=== PATIENT | male | born 1935 | race Caucasian/White ===

== ENCOUNTER 2018-04-11 11:45 | Inpatient (IN) | payer OTHER, MEDICARE ==
[~2018-04-11] VITALS: Ht 172.7 cm; Wt 68.0 kg
[~2018-04-11 11:45] MED LIST: ATOR20 PO; DABI150C; DILT180 PO; GUAI600T33 PO; LISI5 PO; Percocet 5-3251 EACH PO; Zofran Odt4 MG SL
[2018-04-11] MEDS ORDERED: ALBU90OI INH (12:10)
[2018-04-11] MEDS ORDERED: AMLO5 PO (12:10)
[2018-04-11] MEDS ORDERED: ELIQUIS5 MG PO (12:12)
[2018-04-11] MEDS ORDERED: Omeprazole20 M1 PO (12:13)
[2018-04-11] MEDS ORDERED: TAMS.4ER PO (12:14)
[2018-04-11] MEDS ORDERED: STRIVERDI RESPIM4 GM (12:14)
[2018-04-11 14:16] LABS: BASOPHILS ABSOLUTE AUTO 0.03 K/mm3 (0.00-0.23); BASOPHILS PERCENT AUTO 0 % (0-2); EOSINOPHILS ABSOLUTE AUTO 0.03 K/mm3 (0.00-0.68); EOSINOPHILS PERCENT AUTO 0 % (0-6); Hematocrit 40.7 % (37.0-53.0); Hemoglobin 12.8 g/dL (13.5-17.5); IMMATURE GRAN ABSOLUTE AUTO 0.02 K/mm3 (0.00-0.10); IMMATURE GRAN PERCENT AUTO 0 % (0-1); LYMPHOCYTES ABSOLUTE AUTO 0.89 K/mm3 (0.84-5.20); LYMPHOCYTES PERCENT AUTO 12 % (21-46); MONOCYTES ABSOLUTE AUTO 0.45 K/mm3 (0.16-1.47); MONOCYTES PERCENT AUTO 6 % (4-13); Mean Corpuscular HGB 27.6 pg (26.0-34.0); Mean Corpuscular HGB Conc 31.4 g/dL (31.5-36.5); Mean Corpuscular Volume 88 fL (80-100); Mean Platelet Volume 11.4 fL (9.1-12.4); NEUTROPHILS ABSOLUTE AUTO 5.87 K/mm3 (1.96-9.15); NEUTROPHILS PERCENT AUTO 81 % (41-73); Platelet Count 206 K/mm3 (150-400); RDW Coefficient Variation 13.8 % (11.7-14.2); RDW Standard Deviation 44.3 fL (35.1-46.3); Red Blood Cell Count 4.64 M/mm3 (4.30-5.90); White Blood Cell Count 7.29 K/mm3 (4.00-11.30)
[2018-04-11 14:33] LABS: Alanine Aminotransfer (ALT/SGP 21 U/L (12-78); Albumin, Blood 3.5 g/dL (3.4-5.0); Albumin/Globulin Ratio 1.2 (0.8-1.8); Alk Phos 67 U/L (50-136); Anion Gap 9 mmol/L (6-16); Aspartate Aminotrans (AST/SGOT 15 U/L (12-37); Bilirubin, Total 1.1 mg/dL (0.1-1.0); Blood Urea Nitrogen 22 mg/dL (8-24); Bun/Creatinine Ratio 26.9 (12.0-20.0); CO2, Blood 27 mmol/L (21-32); Calcium, Blood 8.6 mg/dL (8.5-10.1); Chloride, Blood 107 mmol/L (98-108); Creatinine, Blood 0.82 mg/dL (0.60-1.20); Glomerular Filtration Rate >60 (60-); Glucose, Blood 105 mg/dL (70-99); Potassium, Blood 3.8 mmol/L (3.5-5.5); Sodium, Blood 143 mmol/L (136-145); Total Protein, Blood 6.5 g/dL (6.4-8.2)
[2018-04-11] MEDS ORDERED: MULTI VITAMIN1 EACH PO (16:26)
[2018-04-11] MEDS ORDERED: ASCO500 PO (16:27)
[2018-04-11] MEDS ORDERED: OMEG1CAP30 PO (16:28)
[2018-04-12 04:18] LABS: BASOPHILS ABSOLUTE AUTO 0.03 K/mm3 (0.00-0.23); BASOPHILS PERCENT AUTO 0 % (0-2); EOSINOPHILS ABSOLUTE AUTO 0.06 K/mm3 (0.00-0.68); EOSINOPHILS PERCENT AUTO 1 % (0-6); Hematocrit 43.3 % (37.0-53.0); Hemoglobin 13.2 g/dL (13.5-17.5); IMMATURE GRAN ABSOLUTE AUTO 0.04 K/mm3 (0.00-0.10); IMMATURE GRAN PERCENT AUTO 0 % (0-1); LYMPHOCYTES ABSOLUTE AUTO 0.97 K/mm3 (0.84-5.20); LYMPHOCYTES PERCENT AUTO 9 % (21-46); MONOCYTES ABSOLUTE AUTO 0.64 K/mm3 (0.16-1.47); MONOCYTES PERCENT AUTO 6 % (4-13); Mean Corpuscular HGB 26.7 pg (26.0-34.0); Mean Corpuscular HGB Conc 30.5 g/dL (31.5-36.5); Mean Corpuscular Volume 88 fL (80-100); Mean Platelet Volume 11.6 fL (9.1-12.4); NEUTROPHILS PERCENT AUTO 84 % (41-73); Platelet Count 218 K/mm3 (150-400); RDW Coefficient Variation 13.8 % (11.7-14.2); RDW Standard Deviation 44.1 fL (35.1-46.3); Red Blood Cell Count 4.95 M/mm3 (4.30-5.90); White Blood Cell Count 11.14 K/mm3 (4.00-11.30)
[2018-04-12 04:43] LABS: Alanine Aminotransfer (ALT/SGP 16 U/L (12-78); Albumin, Blood 3.6 g/dL (3.4-5.0); Albumin/Globulin Ratio 1.2 (0.8-1.8); Alk Phos 63 U/L (50-136); Anion Gap 6 mmol/L (6-16); Aspartate Aminotrans (AST/SGOT 9 U/L (12-37); Bilirubin, Total 1.3 mg/dL (0.1-1.0); Blood Urea Nitrogen 21 mg/dL (8-24); Bun/Creatinine Ratio 26.1 (12.0-20.0); CO2, Blood 29 mmol/L (21-32); Calcium, Blood 8.7 mg/dL (8.5-10.1); Chloride, Blood 107 mmol/L (98-108); Globulin, Blood 2.9 g/dL (2.2-4.0); Glomerular Filtration Rate >60 (60-); Glucose, Blood 108 mg/dL (70-99); Magnesium, Blood 2.2 mg/dL (1.6-2.4); Phosphorus, Blood 2.4 mg/dL (2.5-4.9); Potassium, Blood 3.9 mmol/L (3.5-5.5); Sodium, Blood 142 mmol/L (136-145); Total Protein, Blood 6.5 g/dL (6.4-8.2)
[2018-04-13 04:23] LABS: BASOPHILS ABSOLUTE AUTO 0.04 K/mm3 (0.00-0.23); BASOPHILS PERCENT AUTO 1 % (0-2); EOSINOPHILS ABSOLUTE AUTO 0.02 K/mm3 (0.00-0.68); EOSINOPHILS PERCENT AUTO 0 % (0-6); Hematocrit 43.4 % (37.0-53.0); Hemoglobin 13.6 g/dL (13.5-17.5); IMMATURE GRAN ABSOLUTE AUTO 0.02 K/mm3 (0.00-0.10); IMMATURE GRAN PERCENT AUTO 0 % (0-1); LYMPHOCYTES ABSOLUTE AUTO 0.94 K/mm3 (0.84-5.20); LYMPHOCYTES PERCENT AUTO 11 % (21-46); MONOCYTES ABSOLUTE AUTO 0.59 K/mm3 (0.16-1.47); MONOCYTES PERCENT AUTO 7 % (4-13); Mean Corpuscular HGB 27.5 pg (26.0-34.0); Mean Corpuscular HGB Conc 31.3 g/dL (31.5-36.5); Mean Corpuscular Volume 88 fL (80-100); Mean Platelet Volume 11.7 fL (9.1-12.4); NEUTROPHILS ABSOLUTE AUTO 7.26 K/mm3 (1.96-9.15); NEUTROPHILS PERCENT AUTO 82 % (41-73); Platelet Count 236 K/mm3 (150-400); RDW Coefficient Variation 13.7 % (11.7-14.2); RDW Standard Deviation 43.9 fL (35.1-46.3); Red Blood Cell Count 4.95 M/mm3 (4.30-5.90); White Blood Cell Count 8.87 K/mm3 (4.00-11.30)
[2018-04-13 04:37] LABS: Anion Gap 9 mmol/L (6-16); Blood Urea Nitrogen 19 mg/dL (8-24); Bun/Creatinine Ratio 28.3 (12.0-20.0); CO2, Blood 27 mmol/L (21-32); Calcium, Blood 8.5 mg/dL (8.5-10.1); Chloride, Blood 107 mmol/L (98-108); Creatinine, Blood 0.67 mg/dL (0.60-1.20); Glomerular Filtration Rate >60 (60-); Glucose, Blood 114 mg/dL (70-99); Magnesium, Blood 2.2 mg/dL (1.6-2.4); Phosphorus, Blood 2.1 mg/dL (2.5-4.9); Potassium, Blood 3.6 mmol/L (3.5-5.5); Sodium, Blood 143 mmol/L (136-145)
[2018-04-14 05:20] LABS: BASOPHILS ABSOLUTE AUTO 0.02 K/mm3 (0.00-0.23); BASOPHILS PERCENT AUTO 0 % (0-2); EOSINOPHILS ABSOLUTE AUTO 0.03 K/mm3 (0.00-0.68); EOSINOPHILS PERCENT AUTO 0 % (0-6); Hematocrit 43.3 % (37.0-53.0); Hemoglobin 13.7 g/dL (13.5-17.5); IMMATURE GRAN ABSOLUTE AUTO 0.03 K/mm3 (0.00-0.10); IMMATURE GRAN PERCENT AUTO 0 % (0-1); LYMPHOCYTES ABSOLUTE AUTO 0.99 K/mm3 (0.84-5.20); LYMPHOCYTES PERCENT AUTO 12 % (21-46); MONOCYTES ABSOLUTE AUTO 0.84 K/mm3 (0.16-1.47); MONOCYTES PERCENT AUTO 10 % (4-13); Mean Corpuscular HGB 27.3 pg (26.0-34.0); Mean Corpuscular HGB Conc 31.6 g/dL (31.5-36.5); Mean Corpuscular Volume 86 fL (80-100); Mean Platelet Volume 11.4 fL (9.1-12.4); NEUTROPHILS ABSOLUTE AUTO 6.68 K/mm3 (1.96-9.15); NEUTROPHILS PERCENT AUTO 78 % (41-73); Platelet Count 238 K/mm3 (150-400); RDW Coefficient Variation 13.8 % (11.7-14.2); RDW Standard Deviation 42.8 fL (35.1-46.3); Red Blood Cell Count 5.02 M/mm3 (4.30-5.90); White Blood Cell Count 8.59 K/mm3 (4.00-11.30)
[2018-04-14 05:35] LABS: Anion Gap 9 mmol/L (6-16); Blood Urea Nitrogen 17 mg/dL (8-24); Bun/Creatinine Ratio 24.7 (12.0-20.0); CO2, Blood 27 mmol/L (21-32); Calcium, Blood 8.3 mg/dL (8.5-10.1); Chloride, Blood 106 mmol/L (98-108); Creatinine, Blood 0.69 mg/dL (0.60-1.20); Glomerular Filtration Rate >60 (60-); Glucose, Blood 105 mg/dL (70-99); Magnesium, Blood 2.3 mg/dL (1.6-2.4); Potassium, Blood 3.2 mmol/L (3.5-5.5); Sodium, Blood 142 mmol/L (136-145)
[2018-04-15 04:12] LABS: Anion Gap 10 mmol/L (6-16); Blood Urea Nitrogen 21 mg/dL (8-24); Bun/Creatinine Ratio 32.8 (12.0-20.0); CO2, Blood 25 mmol/L (21-32); Calcium, Blood 8.6 mg/dL (8.5-10.1); Chloride, Blood 106 mmol/L (98-108); Creatinine, Blood 0.64 mg/dL (0.60-1.20); Glomerular Filtration Rate >60 (60-); Glucose, Blood 103 mg/dL (70-99); Phosphorus, Blood 2.6 mg/dL (2.5-4.9); Potassium, Blood 3.1 mmol/L (3.5-5.5); Sodium, Blood 141 mmol/L (136-145)
[2018-04-16 04:40] LABS: Anion Gap 10 mmol/L (6-16); Blood Urea Nitrogen 24 mg/dL (8-24); Bun/Creatinine Ratio 38.2 (12.0-20.0); CO2, Blood 23 mmol/L (21-32); Chloride, Blood 110 mmol/L (98-108); Creatinine, Blood 0.63 mg/dL (0.60-1.20); Glomerular Filtration Rate >60 (60-); Glucose, Blood 92 mg/dL (70-99); Potassium, Blood 3.2 mmol/L (3.5-5.5); Sodium, Blood 143 mmol/L (136-145)
[2018-04-16 12:31] LABS: BASOPHILS ABSOLUTE AUTO 0.04 K/mm3 (0.00-0.23); BASOPHILS PERCENT AUTO 1 % (0-2); EOSINOPHILS ABSOLUTE AUTO 0.11 K/mm3 (0.00-0.68); EOSINOPHILS PERCENT AUTO 1 % (0-6); Hematocrit 39.7 % (37.0-53.0); Hemoglobin 12.6 g/dL (13.5-17.5); IMMATURE GRAN ABSOLUTE AUTO 0.03 K/mm3 (0.00-0.10); IMMATURE GRAN PERCENT AUTO 0 % (0-1); LYMPHOCYTES ABSOLUTE AUTO 1.11 K/mm3 (0.84-5.20); LYMPHOCYTES PERCENT AUTO 13 % (21-46); MONOCYTES ABSOLUTE AUTO 0.98 K/mm3 (0.16-1.47); MONOCYTES PERCENT AUTO 11 % (4-13); Mean Corpuscular HGB 27.6 pg (26.0-34.0); Mean Corpuscular HGB Conc 31.7 g/dL (31.5-36.5); Mean Corpuscular Volume 87 fL (80-100); Mean Platelet Volume 11.4 fL (9.1-12.4); NEUTROPHILS ABSOLUTE AUTO 6.36 K/mm3 (1.96-9.15); NEUTROPHILS PERCENT AUTO 74 % (41-73); Platelet Count 223 K/mm3 (150-400); RDW Standard Deviation 44.2 fL (35.1-46.3); Red Blood Cell Count 4.56 M/mm3 (4.30-5.90); White Blood Cell Count 8.63 K/mm3 (4.00-11.30)
[2018-04-17 04:22] LABS: Hematocrit 38.1 % (37.0-53.0); Mean Corpuscular HGB 26.9 pg (26.0-34.0); Mean Corpuscular HGB Conc 31.5 g/dL (31.5-36.5); Mean Corpuscular Volume 85 fL (80-100); Mean Platelet Volume 11.3 fL (9.1-12.4); Platelet Count 216 K/mm3 (150-400); RDW Standard Deviation 43.2 fL (35.1-46.3); Red Blood Cell Count 4.46 M/mm3 (4.30-5.90); White Blood Cell Count 6.42 K/mm3 (4.00-11.30)
[2018-04-17] MEDS ORDERED: ONDA4ODT PO (10:55)
== END 2018-04-17 11:34 | disposition home or self-care (01) | DRG 389 ==
LOC: ER 11:45 → SURS 11:46
PROVIDERS: Family Medicine
DX: K56.50 Intestinal adhesions [bands], unspecified as to partial versus complete obstruction (principal); K57.32 Diverticulitis of large intestine without perforation or abscess without bleeding; R00.1 Bradycardia, unspecified; I10 Essential (primary) hypertension; I25.10 Atherosclerotic heart disease of native coronary artery without angina pectoris; E87.6 Hypokalemia; J44.9 Chronic obstructive pulmonary disease, unspecified; I73.9 Peripheral vascular disease, unspecified; I71.4 Abdominal aortic aneurysm, without rupture; M10.9 Gout, unspecified; F10.21 Alcohol dependence, in remission; E78.5 Hyperlipidemia, unspecified; I25.2 Old myocardial infarction; Z79.01 Long term (current) use of anticoagulants; Z87.891 Personal history of nicotine dependence
CPT/HCPCS: 36415; 74018; 74019; 80048; 80053; 83735; 84100; 85025; 85027; 94640; 94760; 96361; 96365; 96366; 96372; 96375; 99285; C9113; G0378; J0360; J1650; J3411; J3475; J7030; J7042; J7060

== ENCOUNTER 2021-03-18 14:09 | Inpatient (IN) | payer OTHER, MEDICARE ==
[~2021-03-18] VITALS: Ht 172.7 cm; Wt 65.8 kg
[~2021-03-18 14:09] MED LIST changes: +ACET325 PO; +ALBU90OI INH; +AMLO5 PO; +ASCO500 PO; -ATOR20 PO; +ATOR40TA PO; +Aspirin EC81 MG PO; +ELIQUIS5 MG PO; +FERSU300 PO; +FURO40 PO; +Hair, Skin & N1 EACH PO; +IPRAT-ALBUT 0.5-3 ML INH; +LEVOFLOXACIN250 MG PO; +MULTI VITAMIN1 EACH PO; +OMEG1CAP30 PO; +ONDA4ODT MM; +ONDA4ODT PO; +Omeprazole20 M1 PO; +Prednisone10 MG PO; +STRIVERDI RESPIM4 G1 INH; +TAMS.4ER PO; +VISBIOME PO; +XARELTO20 MG PO
[2021-03-18] MEDS ORDERED: IRON PO (17:01)
[2021-03-18] MEDS ORDERED: XARELTO20 MG PO (17:03)
[2021-03-18] MEDS ORDERED: FISH OIL 1,2001 EAC7 PO (17:04)
[2021-03-18] MEDS ORDERED: ACIDOPHILUS1 EAC3 PO (17:04)
[2021-03-18] MEDS ORDERED: CENTRUM SILVER1 EAC2 PO (17:05)
[2021-03-18] MEDS ORDERED: Flomax0.4 MG PO (17:06)
--- NOTE | 2021-03-18 19:13 | NUR ---
SHIFT SUMMARY: PATIENT ADMIT FROM ED THIS SHIFT (@1855). PT A&O; CALM AND COOPERATIVE. BED IN LOWEST POSITION; CALL LIGHT WITHIN REACH. REPORT GIVEN TO ONCOMING RN.
[2021-03-18] MEDS ORDERED: PRESERVISION A1 EAC1 PO (20:38)
--- NOTE | 2021-03-19 04:31 | NUR ---
SHIFT SUMMARY ARRIVED FROM ED APPROX 1900. A/O X4, 1 ASSIST TO BATHROOM. WEANED OF O2, CURRENTLY ON RA WITH SATS GREATER THAN 92. CONTINUES TO HAVE PRODUCTIVE COUGH WITH YELLOW TO WILKINSON SPUTUM. IV SOLU-MEDROL GIVEN Q6. VSS, NO ACUTE CHANGES AT THIS TIME. BED IN LOWEST POSITION WITH CALL LIGHT IN REACH. WILL CONTINUE TO MONITOR AND REPORT TO ONCOMING RN.
[2021-03-19 06:00] LABS: BASOPHILS PERCENT AUTO 0 % (0-2); EOSINOPHILS PERCENT AUTO 0 % (0-6); Hematocrit 45.3 % (37.0-53.0); Hemoglobin 14.7 g/dL (13.5-17.5); IMMATURE GRAN ABSOLUTE AUTO 0.03 K/mm3 (0.00-0.10); IMMATURE GRAN PERCENT AUTO 1 % (0-1); LYMPHOCYTES ABSOLUTE AUTO 0.53 K/mm3 (0.84-5.20); LYMPHOCYTES PERCENT AUTO 9 % (21-46); MONOCYTES ABSOLUTE AUTO 0.05 K/mm3 (0.16-1.47); MONOCYTES PERCENT AUTO 1 % (4-13); Mean Corpuscular HGB 28.6 pg (26.0-34.0); Mean Corpuscular HGB Conc 32.5 g/dL (31.5-36.5); Mean Corpuscular Volume 88 fL (80-100); Mean Platelet Volume 10.7 fL (9.1-12.4); NEUTROPHILS ABSOLUTE AUTO 5.04 K/mm3 (1.96-9.15); NEUTROPHILS PERCENT AUTO 89 % (41-73); Platelet Count 223 K/mm3 (150-400); RDW Coefficient Variation 15.3 % (11.7-14.2); RDW Standard Deviation 49.7 fL (35.1-46.3); Red Blood Cell Count 5.14 M/mm3 (4.30-5.90); White Blood Cell Count 5.65 K/mm3 (4.00-11.30)
[2021-03-19 06:28] LABS: Anion Gap 7 mmol/L (6-16); Blood Urea Nitrogen 27 mg/dL (8-24); Bun/Creatinine Ratio 30.4 (12.0-20.0); CO2, Blood 25 mmol/L (21-32); Calcium, Blood 9.1 mg/dL (8.5-10.1); Chloride, Blood 105 mmol/L (98-108); Creatinine, Blood 0.89 mg/dL (0.60-1.20); Glomerular Filtration Rate >60 (60-); Glucose, Blood 135 mg/dL (70-99); Sodium, Blood 137 mmol/L (136-145)
--- NOTE | 2021-03-19 18:27 | NUR ---
SHIFT SUMMARY PT UP TO SIDE OF BED FOR LUNCH AND DINNER. IN CHAIR FOR BREAKFAST. REPORTS FEELING MUCH BETTER THAN WHEN HE FIRST ARRIVED TO HOSPITAL. STATES HE HASN'T SLEPT WELL BUT DID GET A NAP THIS AFTERNOON. DAUGHTER AT BEDSIDE THIS AFTERNOON. SOB WITH ACTIVITY BUT RECOVERS WELL. SATS REMAIN IN THE 90'S. DENIES FEELING SOB DESPITE INCREASED RESP AND APPEARING TO DYSPEIC. POSSIBLE DISCHARGE TOMORROW.
--- NOTE | 2021-03-20 04:10 | NUR ---
SHIFT SUMMARY PT REMAINED ON RA. O2 SATS IN THE LOW TO MID 90'S THROUGHOUT THE NIGHT. PT DOES HAVE SOME SOB WITH EXERTION BUT RECOVERS WELL WITH REST. LUNG SOUNDS WHEEZY. PT REPORTS THIS IS BASELINE FOR HIM AND THAT HE "FEELS BETTER THAN HE HAS IN 6 MONTHS". PT SLEPT THROUGH MUCH OF THE NIGHT. VITAL SIGNS STABLE. NO ACUTE CHANGES THIS SHIFT.
[2021-03-20] MEDS ORDERED: Prednisone10 MG PO (10:40)
--- NOTE | 2021-03-20 12:43 | NUR ---
Discharge Summary A/Ox3, forgetful. Discharging to home. Reviewed discharge paperwork with patient and son at the bedside d/t forgetfulness. Patient's wallet has been unlocked and given back to patient. IV removed, WNL. Meds faxed to pharmacy. Copy of d/c paperwork given to patient. Will be escorted by staff via w/c once finished dressing. No questions at this time.
== END 2021-03-20 13:01 | disposition home or self-care (01) | DRG 189 ==
LOC: ER 14:09 → MEDS 14:10 → ER 14:10 → MEDS 14:10
PROVIDERS: Nurse Practitioner Acute Care; ADMIT Internal Medicine
DX: J96.01 Acute respiratory failure with hypoxia (principal); J44.1 Chronic obstructive pulmonary disease with (acute) exacerbation; I48.20 Chronic atrial fibrillation, unspecified; N40.0 Benign prostatic hyperplasia without lower urinary tract symptoms; I25.10 Atherosclerotic heart disease of native coronary artery without angina pectoris; I11.0 Hypertensive heart disease with heart failure; I73.9 Peripheral vascular disease, unspecified; D50.9 Iron deficiency anemia, unspecified; Z79.899 Other long term (current) drug therapy; Z95.1 Presence of aortocoronary bypass graft; E78.5 Hyperlipidemia, unspecified; J44.9 Chronic obstructive pulmonary disease, unspecified; M10.9 Gout, unspecified; I50.9 Heart failure, unspecified; Z98.890 Other specified postprocedural states; Z87.891 Personal history of nicotine dependence; Z88.2 Allergy status to sulfonamides; Z88.8 Allergy status to other drugs, medicaments and biological substances
CPT/HCPCS: 36415; 71045; 71046; 80048; 83605; 84145; 84484; 85025; 87040; 93005; 93010; 94640; 94667; 94761; 94762; 96365; 96366; 96375; 96376; 99285-25; A9270; G0378; J0696; J2930

== ENCOUNTER 2021-06-24 16:45 | Emergency (ER) | payer OTHER, MEDICARE ==
[~2021-06-24] VITALS: Ht 172.7 cm; Wt 63.5 kg
[~2021-06-24 16:45] MED LIST changes: +ACIDOPHILUS1 EAC3 PO; +CENTRUM SILVER1 EAC2 PO; +FISH OIL 1,2001 EAC7 PO; +Flomax0.4 MG PO; +IRON PO; +PRESERVISION A1 EAC1 PO
[2021-06-24 17:57] LABS: BASOPHILS ABSOLUTE AUTO 0.07 K/mm3 (0.00-0.23); BASOPHILS PERCENT AUTO 1 % (0-2); EOSINOPHILS ABSOLUTE AUTO 0.36 K/mm3 (0.00-0.68); EOSINOPHILS PERCENT AUTO 6 % (0-6); Hematocrit 41.9 % (37.0-53.0); Hemoglobin 13.4 g/dL (13.5-17.5); IMMATURE GRAN ABSOLUTE AUTO 0.03 K/mm3 (0.00-0.10); IMMATURE GRAN PERCENT AUTO 1 % (0-1); LYMPHOCYTES ABSOLUTE AUTO 0.81 K/mm3 (0.84-5.20); LYMPHOCYTES PERCENT AUTO 13 % (21-46); MONOCYTES ABSOLUTE AUTO 0.79 K/mm3 (0.16-1.47); MONOCYTES PERCENT AUTO 13 % (4-13); Mean Corpuscular HGB 28.1 pg (26.0-34.0); Mean Corpuscular Volume 88 fL (80-100); Mean Platelet Volume 10.9 fL (9.1-12.4); NEUTROPHILS ABSOLUTE AUTO 4.04 K/mm3 (1.96-9.15); NEUTROPHILS PERCENT AUTO 66 % (41-73); Platelet Count 294 K/mm3 (150-400); RDW Coefficient Variation 14.1 % (11.7-14.2); RDW Standard Deviation 45.5 fL (35.1-46.3); Red Blood Cell Count 4.77 M/mm3 (4.30-5.90)
[2021-06-24 18:13] LABS: Alanine Aminotransfer (ALT/SGP 24 U/L (12-78); Albumin/Globulin Ratio 0.9 (0.8-1.8); Alk Phos 63 U/L (50-136); Anion Gap 6 mmol/L (6-16); Aspartate Aminotrans (AST/SGOT 21 U/L (12-37); Bilirubin, Total 1.1 mg/dL (0.1-1.0); Blood Urea Nitrogen 24 mg/dL (8-24); CO2, Blood 27 mmol/L (21-32); Calcium, Blood 9.3 mg/dL (8.5-10.1); Chloride, Blood 105 mmol/L (98-108); Creatinine, Blood 0.92 mg/dL (0.60-1.20); Globulin, Blood 3.4 g/dL (2.2-4.0); Glomerular Filtration Rate >60 (60-); Glucose, Blood 96 mg/dL (70-99); Magnesium, Blood 2.2 mg/dL (1.6-2.4); Potassium, Blood 4.1 mmol/L (3.5-5.5); Sodium, Blood 138 mmol/L (136-145); Total Protein, Blood 6.4 g/dL (6.4-8.2); Troponin I <0.015 ng/mL (0.000-0.040)
[2021-06-24] MEDS ORDERED: Prednisone20 MG PO (19:15)
== END 2021-06-24 19:50 | disposition home or self-care (01) ==
LOC: ER 16:45
PROVIDERS: Emergency Medicine
DX: J44.1 Chronic obstructive pulmonary disease with (acute) exacerbation (principal); I11.0 Hypertensive heart disease with heart failure; I50.9 Heart failure, unspecified; I48.91 Unspecified atrial fibrillation; D50.9 Iron deficiency anemia, unspecified; Z88.8 Allergy status to other drugs, medicaments and biological substances; Z88.2 Allergy status to sulfonamides; Z79.899 Other long term (current) drug therapy; Z99.81 Dependence on supplemental oxygen; Z87.891 Personal history of nicotine dependence
CPT/HCPCS: 71045; 80053; 83735; 83880; 84145; 84484; 85025; 93005; 93010; 94640; 96374; 99285-25; J1940; J7512

== ENCOUNTER 2021-08-07 13:31 | Emergency (ER) | payer OTHER ==
[~2021-08-07] VITALS: Ht 172.7 cm; Wt 63.5 kg
[~2021-08-07 13:31] MED LIST changes: +Prednisone20 MG PO
[2021-08-07] MEDS ORDERED: GUAI600T33 PO (13:53)
[2021-08-07] MEDS ORDERED: ROFL500T PO (13:54)
[2021-08-07 14:44] LABS: BASOPHILS ABSOLUTE AUTO 0.05 K/mm3 (0.00-0.23); BASOPHILS PERCENT AUTO 1 % (0-2); EOSINOPHILS PERCENT AUTO 2 % (0-6); Hematocrit 40.8 % (37.0-53.0); Hemoglobin 12.5 g/dL (13.5-17.5); IMMATURE GRAN ABSOLUTE AUTO 0.01 K/mm3 (0.00-0.10); IMMATURE GRAN PERCENT AUTO 0 % (0-1); LYMPHOCYTES ABSOLUTE AUTO 1.02 K/mm3 (0.84-5.20); LYMPHOCYTES PERCENT AUTO 23 % (21-46); MONOCYTES PERCENT AUTO 9 % (4-13); Mean Corpuscular HGB 27.2 pg (26.0-34.0); Mean Corpuscular HGB Conc 30.6 g/dL (31.5-36.5); Mean Corpuscular Volume 89 fL (80-100); Mean Platelet Volume 11.1 fL (9.1-12.4); NEUTROPHILS ABSOLUTE AUTO 2.79 K/mm3 (1.96-9.15); NEUTROPHILS PERCENT AUTO 64 % (41-73); Platelet Count 176 K/mm3 (150-400); RDW Standard Deviation 53.6 fL (35.1-46.3); White Blood Cell Count 4.37 K/mm3 (4.00-11.30)
[2021-08-07 14:57] LABS: Alanine Aminotransfer (ALT/SGP 24 U/L (12-78); Albumin, Blood 3.2 g/dL (3.4-5.0); Alk Phos 62 U/L (50-136); Anion Gap 7 mmol/L (6-16); Aspartate Aminotrans (AST/SGOT 14 U/L (12-37); Bilirubin, Total 0.8 mg/dL (0.1-1.0); Blood Urea Nitrogen 20 mg/dL (8-24); Bun/Creatinine Ratio 19.4 (12.0-20.0); CO2, Blood 26 mmol/L (21-32); Calcium, Blood 9.4 mg/dL (8.5-10.1); Chloride, Blood 108 mmol/L (98-108); Creatinine, Blood 1.03 mg/dL (0.60-1.20); Globulin, Blood 3.3 g/dL (2.2-4.0); Glomerular Filtration Rate >60 (60-); Glucose, Blood 96 mg/dL (70-99); Potassium, Blood 3.7 mmol/L (3.5-5.5); Sodium, Blood 141 mmol/L (136-145); Total Protein, Blood 6.5 g/dL (6.4-8.2); Troponin I <0.015 ng/mL (0.000-0.040)
[2021-08-07 15:59] LABS: Influenza A, PCR NEGATIVE (NEGATIVE); Influenza B, PCR NEGATIVE (NEGATIVE); Resp Syncytial Virus, PCR NEGATIVE (NEGATIVE); SARS-Cov-2 (COVID-19) PCR, MMC NEGATIVE (NEGATIVE)
[2021-08-07] MEDS ORDERED: LEVFLO500 PO (16:58)
== END 2021-08-07 17:18 | disposition home or self-care (01) ==
LOC: ER 13:31
PROVIDERS: Emergency Medicine
DX: J18.9 Pneumonia, unspecified organism (principal); J44.9 Chronic obstructive pulmonary disease, unspecified; I11.0 Hypertensive heart disease with heart failure; I50.9 Heart failure, unspecified; I48.91 Unspecified atrial fibrillation; Z20.822 Contact with and (suspected) exposure to COVID-19; Z88.8 Allergy status to other drugs, medicaments and biological substances; Z79.899 Other long term (current) drug therapy
CPT/HCPCS: 0241U; 71045; 80053; 83880; 84484; 85025; 93005; 93010; 93970; 99285-25; A9270

== ENCOUNTER 2021-08-24 14:30 | Inpatient (IN) | payer OTHER ==
[~2021-08-24] VITALS: Ht 177.8 cm; Wt 56.6 kg
[~2021-08-24 14:30] MED LIST changes: +LEVFLO500 PO; +ROFL500T PO
[2021-08-24 15:35] LABS: BASOPHILS ABSOLUTE AUTO 0.07 K/mm3 (0.00-0.23); BASOPHILS PERCENT AUTO 1 % (0-2); EOSINOPHILS ABSOLUTE AUTO 0.15 K/mm3 (0.00-0.68); EOSINOPHILS PERCENT AUTO 3 % (0-6); Hematocrit 43.4 % (37.0-53.0); Hemoglobin 13.1 g/dL (13.5-17.5); IMMATURE GRAN ABSOLUTE AUTO 0.02 K/mm3 (0.00-0.10); IMMATURE GRAN PERCENT AUTO 0 % (0-1); LYMPHOCYTES ABSOLUTE AUTO 1.03 K/mm3 (0.84-5.20); LYMPHOCYTES PERCENT AUTO 18 % (21-46); MONOCYTES ABSOLUTE AUTO 0.67 K/mm3 (0.16-1.47); MONOCYTES PERCENT AUTO 12 % (4-13); Mean Corpuscular HGB 27.1 pg (26.0-34.0); Mean Corpuscular HGB Conc 30.2 g/dL (31.5-36.5); Mean Corpuscular Volume 90 fL (80-100); Mean Platelet Volume 11.1 fL (9.1-12.4); NEUTROPHILS ABSOLUTE AUTO 3.77 K/mm3 (1.96-9.15); NEUTROPHILS PERCENT AUTO 66 % (41-73); Platelet Count 226 K/mm3 (150-400); RDW Coefficient Variation 17.2 % (11.7-14.2); RDW Standard Deviation 56.4 fL (35.1-46.3); Red Blood Cell Count 4.83 M/mm3 (4.30-5.90); White Blood Cell Count 5.71 K/mm3 (4.00-11.30)
[2021-08-24 15:53] LABS: Alanine Aminotransfer (ALT/SGP 22 U/L (12-78); Albumin, Blood 3.5 g/dL (3.4-5.0); Albumin/Globulin Ratio 1.1 (0.8-1.8); Alk Phos 67 U/L (50-136); Anion Gap 4 mmol/L (6-16); Aspartate Aminotrans (AST/SGOT 18 U/L (12-37); Bilirubin, Total 0.7 mg/dL (0.1-1.0); Blood Urea Nitrogen 23 mg/dL (8-24); Bun/Creatinine Ratio 23.6 (12.0-20.0); CO2, Blood 29 mmol/L (21-32); Calcium, Blood 9.9 mg/dL (8.5-10.1); Chloride, Blood 108 mmol/L (98-108); Creatinine, Blood 0.97 mg/dL (0.60-1.20); Globulin, Blood 3.3 g/dL (2.2-4.0); Glomerular Filtration Rate >60 (60-); Glucose, Blood 108 mg/dL (70-99); Potassium, Blood 4.2 mmol/L (3.5-5.5); Sodium, Blood 141 mmol/L (136-145); Total Protein, Blood 6.8 g/dL (6.4-8.2); Troponin I <0.015 ng/mL (0.000-0.040)
[2021-08-24 16:06] LABS: SARS-Cov-2 (COVID-19) PCR, MMC NEGATIVE (NEGATIVE)
[2021-08-24] MEDS ORDERED: ATROPINE S0.4 MG/1 M PO (16:30)
[2021-08-24] MEDS ORDERED: METO25ER PO (18:28)
[2021-08-24] MEDS ORDERED: FURO20 PO (18:29)
[2021-08-24 23:44] LABS: Adenovirus Not Detected (NOT DETECT); Bordetella pertussis Not Detected (NOT DETECT); Chlamydophila pneumoniae Not Detected (NOT DETECT); Coronavirus 229E Not Detected (NOT DETECT); Coronavirus HKU1 Not Detected (NOT DETECT); Coronavirus NL63 Not Detected (NOT DETECT); Coronavirus OC43 Not Detected (NOT DETECT); Human Metapneumovirus Not Detected (NOT DETECT); Human Rhinovirus/Enterovirus Detected (NOT DETECT); Influenza A/2009-H1 Not Detected (NOT DETECT); Influenza A/H1 Not Detected (NOT DETECT); Influenza A/H3 Not Detected (NOT DETECT); Influenza B Not Detected (NOT DETECT); Mycoplasma pneumoniae Not Detected (NOT DETECT); Parainfluenza Virus 1 Not Detected (NOT DETECT); Parainfluenza Virus 2 Not Detected (NOT DETECT); Parainfluenza Virus 3 Not Detected (NOT DETECT); Parainfluenza Virus 4 Not Detected (NOT DETECT); Respiratory Syncytial Virus Not Detected (NOT DETECT); SARS-Cov-2 (COVID-19), BioFire Not Detected (NOT DETECT)
[2021-08-25 04:48] LABS: Anion Gap 8 mmol/L (6-16); Blood Urea Nitrogen 21 mg/dL (8-24); Bun/Creatinine Ratio 23.3 (12.0-20.0); CO2, Blood 28 mmol/L (21-32); Calcium, Blood 9.8 mg/dL (8.5-10.1); Chloride, Blood 104 mmol/L (98-108); Glomerular Filtration Rate >60 (60-); Glucose, Blood 153 mg/dL (70-99); Potassium, Blood 3.7 mmol/L (3.5-5.5); Sodium, Blood 140 mmol/L (136-145)
--- NOTE | 2021-08-25 13:23 | NUR ---
PATIENT ALERT AND ORIENTED. HARD OF HEARING. ABLE TO MOVE ALL EXTREMITIES. USING WALKER WITH 1 PERSON ASSIST. DENIES NUMBNESS/TINGLING. ON 4 L O2 SATING LOW-MID 90'S. OCCASIONAL MOIST/WET COUGH. TELE SHOWING SINUS VERONIKA WITH PVC'S. HR 50-70'S. DENIES CHEST PAIN/PRESSURE. COMPLAINS OF CHRONIC BACK PAIN/NECK. DENIES NEED FOR MEDICATION. TAKING MEDS WHOLE ONE AT A TIME WITH APPLESAUCE. VOIDING WELL. SKIN OVERALL FRAGILE. SPOKE WITH FAMILY MEMBER ON PHONE EMILY FOR UPDATE. CALL LIGHT IN REACH. BED IN LOW LOCKED POSITION. WILL CONTINUE TO MONITOR.
--- NOTE | 2021-08-25 18:17 | NUR ---
SHIFT SUMMARY: NO ACUTE CHANGES. TELE REMAINS UNCHAGED. HR 60-70'S. SLEEPING ON AND OFF THIS AFTERNOON. DAUGHTER IN TO VISIT. REMAINS ON 4L NASAL CANNULA SATING LOW-MID 90'S. OCCASIONAL COUGH THAT IS WET/MOIST. DENIES ANY PAIN OR NEEDS AT THIS TIME. NOT INTERESTED IN EATING DINNER. DRINKING ENSURE. VITAL SIGNS STABLE. WILL CONTINUE TO MONITOR AND REPORT OFF.
--- NOTE | 2021-08-26 02:37 | NUR ---
PT CONTINUE TO REQUIRE 4L O2 NC. O2 SAT 91-97%, WILL CONTINUE TO ATTEMPT TO WEAN. WET COUGH OCCASIONAL. ADNMINISTERING SOLUMEDROL. PT RECIEVING KIMMY TREATMENTS. CONTINUE TO MONITOR.
[2021-08-26 03:52] LABS: Hematocrit 41.1 % (37.0-53.0); Mean Corpuscular HGB 27.3 pg (26.0-34.0); Mean Corpuscular HGB Conc 31.6 g/dL (31.5-36.5); Mean Corpuscular Volume 86 fL (80-100); Mean Platelet Volume 11.1 fL (9.1-12.4); Platelet Count 223 K/mm3 (150-400); RDW Coefficient Variation 17.2 % (11.7-14.2); RDW Standard Deviation 54.4 fL (35.1-46.3); Red Blood Cell Count 4.77 M/mm3 (4.30-5.90); White Blood Cell Count 7.04 K/mm3 (4.00-11.30)
[2021-08-26 04:13] LABS: Alanine Aminotransfer (ALT/SGP 20 U/L (12-78); Albumin, Blood 3.2 g/dL (3.4-5.0); Alk Phos 56 U/L (50-136); Anion Gap 8 mmol/L (6-16); Aspartate Aminotrans (AST/SGOT 9 U/L (12-37); Bilirubin, Total 0.6 mg/dL (0.1-1.0); Blood Urea Nitrogen 23 mg/dL (8-24); Bun/Creatinine Ratio 29.3 (12.0-20.0); CO2, Blood 28 mmol/L (21-32); Chloride, Blood 104 mmol/L (98-108); Creatinine, Blood 0.79 mg/dL (0.60-1.20); Globulin, Blood 3.3 g/dL (2.2-4.0); Glomerular Filtration Rate >60 (60-); Glucose, Blood 156 mg/dL (70-99); Potassium, Blood 3.3 mmol/L (3.5-5.5); Sodium, Blood 140 mmol/L (136-145); Total Protein, Blood 6.5 g/dL (6.4-8.2)
[2021-08-26] MEDS ORDERED: LEVO750 PO (12:14)
[2021-08-26] MEDS ORDERED: PRED20 PO (12:15)
--- NOTE | 2021-08-26 14:42 | NUR ---
PT DISCHARGED TO HOME TODAY WITH DISCHARGE ORDERS. PT TO CONTINUE STEROIDS AND ANTIBIOTIC AT HOME, [facility] DA[facility]TER [facility] AWARE PT HAS UPCOMING FF-UP THIS . DISCHARGE INSTRUCTIONS DISCLOSED WITH THE PT AND THE DAUGHTER. BOTH VERBALIZED UNDERSTANDING. ALL BELONGINGS SENT WITH THE PATIENT, ACCOMPANIED VIA WHEELCHIAR, DAUGHTER PROVIDED TRANSPORTATION.
== END 2021-08-26 14:25 | disposition hospice, home (50) | DRG 189 ==
LOC: ER 14:30 → ERHOLD 16:52 → PCU 16:52
PROVIDERS: Internal Medicine; Physician Assistant; ADMIT Internal Medicine
DX: J96.21 Acute and chronic respiratory failure with hypoxia (principal); I48.20 Chronic atrial fibrillation, unspecified; I50.22 Chronic systolic (congestive) heart failure; I49.5 Sick sinus syndrome; Z20.822 Contact with and (suspected) exposure to COVID-19; E78.5 Hyperlipidemia, unspecified; J44.9 Chronic obstructive pulmonary disease, unspecified; I48.0 Paroxysmal atrial fibrillation; M10.9 Gout, unspecified; I35.0 Nonrheumatic aortic (valve) stenosis; D50.9 Iron deficiency anemia, unspecified; I11.0 Hypertensive heart disease with heart failure; R25.8 Other abnormal involuntary movements; N40.0 Benign prostatic hyperplasia without lower urinary tract symptoms; G31.84 Mild cognitive impairment of uncertain or unknown etiology; I25.10 Atherosclerotic heart disease of native coronary artery without angina pectoris; Z87.19 Personal history of other diseases of the digestive system; Z99.81 Dependence on supplemental oxygen; Z51.5 Encounter for palliative care; Z95.1 Presence of aortocoronary bypass graft; Z86.73 Personal history of transient ischemic attack (TIA), and cerebral infarction without residual deficits; Z85.46 Personal history of malignant neoplasm of prostate; Z87.891 Personal history of nicotine dependence; Z88.2 Allergy status to sulfonamides; Z88.8 Allergy status to other drugs, medicaments and biological substances; Z79.01 Long term (current) use of anticoagulants; Z79.52 Long term (current) use of systemic steroids; Z79.899 Other long term (current) drug therapy
CPT/HCPCS: 0202U; 36415; 71045; 80048; 80053; 83880; 84484; 85025; 85027; 93005; 93010; 94640; 94760; 96374; 96375; 99285-25; A9270; J1940; J2930; U0004

== ENCOUNTER 2021-08-27 05:22 | Inpatient (IN) | payer OTHER ==
[~2021-08-27] VITALS: Ht 172.7 cm; Wt 54.4 kg
[~2021-08-27 05:22] MED LIST changes: +ATROPINE S0.4 MG/1 M PO; +FURO20 PO; +LEVO750 PO; +METO25ER PO; +PRED20 PO
[2021-08-27 05:51] LABS: BASOPHILS PERCENT AUTO 0 % (0-2); EOSINOPHILS PERCENT AUTO 0 % (0-6); Hematocrit 43.4 % (37.0-53.0); Hemoglobin 13.4 g/dL (13.5-17.5); IMMATURE GRAN ABSOLUTE AUTO 0.05 K/mm3 (0.00-0.10); IMMATURE GRAN PERCENT AUTO 1 % (0-1); LYMPHOCYTES ABSOLUTE AUTO 0.38 K/mm3 (0.84-5.20); LYMPHOCYTES PERCENT AUTO 4 % (21-46); MONOCYTES ABSOLUTE AUTO 0.65 K/mm3 (0.16-1.47); MONOCYTES PERCENT AUTO 7 % (4-13); Mean Corpuscular HGB 27.3 pg (26.0-34.0); Mean Corpuscular HGB Conc 30.9 g/dL (31.5-36.5); Mean Corpuscular Volume 88 fL (80-100); NEUTROPHILS ABSOLUTE AUTO 7.71 K/mm3 (1.96-9.15); NEUTROPHILS PERCENT AUTO 88 % (41-73); Platelet Count 224 K/mm3 (150-400); RDW Coefficient Variation 17.5 % (11.7-14.2); RDW Standard Deviation 56.4 fL (35.1-46.3); Red Blood Cell Count 4.91 M/mm3 (4.30-5.90); White Blood Cell Count 8.79 K/mm3 (4.00-11.30)
[2021-08-27 06:10] LABS: Alanine Aminotransfer (ALT/SGP 21 U/L (12-78); Albumin, Blood 3.3 g/dL (3.4-5.0); Alk Phos 55 U/L (50-136); Anion Gap 6 mmol/L (6-16); Aspartate Aminotrans (AST/SGOT 18 U/L (12-37); Bilirubin, Total 0.5 mg/dL (0.1-1.0); Blood Urea Nitrogen 30 mg/dL (8-24); Bun/Creatinine Ratio 32.6 (12.0-20.0); CO2, Blood 31 mmol/L (21-32); Calcium, Blood 9.9 mg/dL (8.5-10.1); Chloride, Blood 101 mmol/L (98-108); Creatinine, Blood 0.92 mg/dL (0.60-1.20); Globulin, Blood 3.3 g/dL (2.2-4.0); Glomerular Filtration Rate >60 (60-); Glucose, Blood 125 mg/dL (70-99); Magnesium, Blood 2.3 mg/dL (1.6-2.4); Potassium, Blood 4.2 mmol/L (3.5-5.5); Sodium, Blood 138 mmol/L (136-145); Total Protein, Blood 6.6 g/dL (6.4-8.2)
[2021-08-27 12:39] LABS: Influenza A, PCR NEGATIVE (NEGATIVE); Influenza B, PCR NEGATIVE (NEGATIVE); Resp Syncytial Virus, PCR NEGATIVE (NEGATIVE); SARS-Cov-2 (COVID-19) PCR, MMC NEGATIVE (NEGATIVE)
[2021-08-27 14:25] LABS: Troponin I 0.027 ng/mL (0.000-0.040)
[2021-08-27 14:28] LABS: Thyroid Stimulating Hormone 2.51 uIU/mL (0.360-4.800)
--- NOTE | 2021-08-27 15:40 | NUR ---
Pt arrived from ED, on 4 l/min of oxygen delivery, alert, oriented to person, place, and date. He is rambling in conversation, often about unrelated ideas/events, and it is difficult to get a direct answer from him. He is following directions and responding to questions. In no apparent distress, and his vital signs are stable. Oxygen decreased to 2 l/min and spo2 is maintaining at 93-97%. Fine crackles are heard in the bases posteriorly. Sinus bradycardia, averaging 50 bpm, with PVCs and I was just alerted by the program director cable television that he had a [address] Morin, linoleum installer, here to see the patient.
--- NOTE | 2021-08-27 15:45 | NUR ---
Upon arrival, noted that a chux pad underneath the patient was stained with a small amount of blood, and some dried blood also noted on the pt's urethra. HELEN Pappas said that she thought it was from the unsuccessful attempt to straight catheterize the patient. Noted outstanding uncollected urine specimen on the orders.
--- NOTE | 2021-08-27 17:36 | NUR ---
Pt attempting to void with urinal while lying in bed.
[2021-08-27 18:19] LABS: International Normalized Ratio 1.11; Prothrombin Time Results 11.6 Sec (9.7-11.5)
[2021-08-27 18:24] LABS: Source, Urine Catheter
[2021-08-27 18:28] LABS: Appearance, Urine Cloudy (Clear); Bilirubin, Urine Neg (Neg); Blood, Urine 5+ (Neg); Color, Urine Amber (P-Yellow); Glucose Qualitative, Urine Neg (Neg); Ketones, Urine Neg (Neg); Leukocyte Esterase, Urine 2+ (Neg); Nitrite, Urine Neg (Neg); Protein, Urine 3+ (Neg); Urobilinogen, Urine NORM (Normal)
--- NOTE | 2021-08-27 18:28 | NUR ---
Pt bladder scanned and 355 cc noted; Pt assisted to stand to void. He voided only about 40 cc, stated that it hurts to void, and sonam blood noted dripping from the end of his urethra after the void. Call to Dr. Abdul and new orders received. Discussed the heparin gtt orders, which she said she would discuss with Dr. Montemayor since he talked with Dr. Morin who had ordered it in the first place. Heparin gtt not yet started.
[2021-08-27 18:39] LABS: Hyaline Casts 0-2 /lpf (0-2); Red Blood Cells, Urine TNTC /hpf (0-2)
[2021-08-27 18:40] LABS: Bacteria Mod /hpf; Squamous Epithelial Cells Not Seen /hpf (Few); White Blood Cells, Urine 0-2 /hpf (0-5)
--- NOTE | 2021-08-27 20:21 | NUR ---
COMFORT CARE UPDATE: Spoke with family/decision makers regarding pts status. Pt demonstrating increased agitation, dyspnea, and discomfort. Decision was made to transition to comfort care as per family request who have demonstrated significant support for pt throughout medical treatment. Ultimate goal remains for pt to be able to discharge home with hospice/end of life support though verbalized understanding that priority is for comfort and symptom management to begin while hospitalized. Chart updated with family contact numbers, questions answered, plan discussed with care team.
--- NOTE | 2021-08-28 05:43 | NUR ---
SHIFT SUMMARY PT A&OX2. COOPERATIVE. SOMETIMES DOES NOT KNOW WHERE HE IS. PT STATES, "WHAT HAPPENED TO MY ROOM?" ONCE REMINDED HE IS IN THE HOSPITAL, PT STATES "OH THAT EXPLAINS WHY EVERYTHING IS DIFFERENT.". ATTEMPTS TO GET OUT OF BED "TO GO HOME". SP02>90% ON 4L NC. PT CHANGED TO COMFORT CARE AT BEGINNING OF SHIFT, NO TELEMETRY. PT C/O OF SEVERE ABD PAIN AT BEGINNING OF SHIFT. APPEARED TO HAVE TROUBLE URINATING. BLADDER SCAN SHOWED 375 MLS IN BLADDER. PT WAS ABLE TO VOID 20 MLS. AFTER VOIDED, FEW DROPS OF RED BLOOD FROM URETHRA. 1 MG DIULADID GIVEN PER EMAR FOR PAIN. PT SLEPT MOST OF SHIFT. AWAKENED THIS AM DENYING ABD PAIN AND VOIDING 275 MLS, NO BLOOD NOTED THIS TIME. PT NOW UP IN CHAIR W/ CHAIR ALARM. ATTEMPTS TO EXIT CHAIR FREQUENTLY. CALL LIGHT IN REACH.
--- NOTE | 2021-08-28 11:22 | NUR ---
Comfort care visit made this am after review of EMR and new orders & Case conference with pt's RN. Later made second visit when phuong, Monica, was visiting. She had met with CM and #1 d/c plan of choice is for pt to return home with family and hospice care. Medical POA is pt's son, Trever. Alberto will notify him and other family members to choose agency of choice. During my first visit, pt was sleeping with even and sl labored respirations of 20/min. No nonverbal indicators of pain or restlessness noted at that time. RN reported that pt did have some episodes of agitation, anxiety earlier in the am and prev night. Reviewed comfort care medications/plan of care with her and Dr. Scott ALBRECHT obtained to adjust comfort care orders specific to pt needs. New comfort care orders entered per Comfort Care order set. On second visit, alberto and Air Sampling And Monitoring Rupesh at bedside. Pt is conversant, confused, mostly calm except when discussing going home. He REALLY wants to return home BARBARA. Information on hospice agency availability obtained thru CM for Alberto. She will relay that to her MPOA and let us know agency of choice BARBARA. Monica is a former employee of [employer] and that would be her preference but states she is unable to make that decision. She also needs to make sure that her dad is available to sign hospice paperwork at the home tomorrow. Both local agencies that serve area of pt's residence are available for admissions tomorrow (as of this moment). Monica believes pt has O2 at home but he will need a hospital bed and other DME arranged prior to d/c. Monica has not been one of pt's in -home caregivers. A second alberto, Candy, has also called RN for an update. Monica will let her know we are waiting on family agency choice to start implementing d/c plan of choice. Pt denies pain at this time. Anxious to go home. [facility] will remain available as support to pt/family and staff.
--- NOTE | 2021-08-28 12:55 | NUR ---
Spiritual care visit conducted. Patient is lying in bed and alert. Patient talks at length about his family and his cars and struggles to discuss his health. He is very clear about wanting to get back to his house. He expresses his great love for his family and love of work. He has many stories to tell. We also talks about his recent margaret conversion. After a life time of being angry with God, he made peace with God last night in a prayer with a industrial insulator over the phone. I normalize his frustrations and provide therapeutic listening, a calming presence and prayer. Patient responds well and shows signs of being comforted. I will continue to remain available to patient and family.
--- NOTE | 2021-08-28 13:19 | NUR ---
UPDATE: Nurse has received multiple phone calls from pt's granddaughter Candy, starting at 0645 this am. At times of phone calls primary RN was providing care to patients and unable to take call. Kira (other granddaughter) and Trever (Son and POA) were updated by care-management as they are listed as points of contact. Monica (other granddaughter) at patients bedside and also updated since she is at bedside. Candy called again wanting an update, was very frustrated with not having recieved a call back. Informed her multiple family members had been updated and that her father, Trever, who is the POA is the contact and that she needs to defer to him for an update. Candy stated that she is actually the point of contact and has been. Checked notes and Candy is not listed as point of contact in recent care management notes nor DrJeff note. Her name is listed under Kira as next of kin and Trever is listed as Person to notify. Again, firmly defered her to speak to her father as he is the POA and has been updated, as well as multiple other family members. Informed her that if Trever would like this to change, and have Candy as point of contact, he would need to contact us and make this change.
--- NOTE | 2021-08-28 14:53 | NUR ---
Summary of ongoing conversations with nursing, family, Dr Abdul and Jerry. I was called back to the room a number of times to meet with phuong at bedside, Monica and then contacted by , stating that son is requesting a second opinion before deciding on hospice. I called Trever from his daughter's phone and remained in Monica's presence for the phone conversation because she was also confused by the change in plans per her dad, who is the medical POA and durable POA according to Monica. Trever states that his dad was suppose to have a routine visit with his kitchen operator in [place] today. Since pt is in the hospital, Trever planned to have one of his daughters (he did not give a name) call the [place] kitchen operator for their input before deciding on hospice. I reviewed quality of life issues and after care required for PPM placement that his dad may not be able to comply with due to poor memory. During my second to fourth visits to the room, pt can converse if it is in regards to cars but cannot follow a train of thought about other topics. I let Trever know that pt is medically ready for discharge per Glenna in light of request for no pacemaker placement requested by family. He was informed that his dad's s/s are well managed at this time and that his dad is clear that he wants to go home BARBARA. Trever states they "should have an answer very soon". I instructed him to inform our Shovel Log Loader Operator of the family decision and desired goals of care as soon as possible and reminded him that family had requested comfort care yesterday and that pt is currently on comfort care. Trever verbalized understanding. Monica was present for this entire conversation and was unaware of her dad's desire to include [place] kitchen operator in the decision making. She does not know when pt last saw his OP kitchen operator in [place]. All of above was reported to Dr Abdul, MINE, bedside RN and lost charge card clerk in PCU.
--- NOTE | 2021-08-28 18:18 | NUR ---
PT REMAINS ON COMFORT CARE- NO S/S OF DISTRESS NOTED AT THIS TIME. HOSPICE D/C DELAYED D/T UNSAFE HOME SITUATION PER FAMILY AND PENDING MEDICAL SUPPLY DELIVERY. PT RECEIVED ATIVAN X2 D/T AGITATION. CONTINUES TO BE A&OX1, REQUIRES FREQUENT RE-ORIENTATION. ALL DECISION MAKING FOR POC HAS BEEN DEFERRED TO DPOAS ON FILE. FREQUENT ROUNDING AND BED ALARM UTILIZED TO ENSURE PT SAFETY.
--- NOTE | 2021-08-29 04:52 | NUR ---
SHIFT SUMMARY NO ACUTE CHANGES. PT HAS BEEN RESTING IN BED QUIETELY. DID HAVE INSTANCE OF ANXIETY, TRYING TO GET OOB, URINATED ALL OVER SLOOR. MEDS PER EMAR FOR ANXIETY EFFECTIVE. WHEN AWAKE, PT HOLDING SOME CONVERSATION WITH STAFF BUT NOT REALLY APPROPRIATE TO SITUATION. OTHERWISE, BED ALARM IN PLACE. BED IN LOW POSITION.
--- NOTE | 2021-08-29 08:37 | NUR ---
Late Entry from 08/28/2021 at 1715: Received notification from [facility] Clinical Coordinator (Lizeth Stallworth) that patient is hospice appropriate and able to be accepted onto service post discharge. Will attempt to meet with patient and/or family tomorrow to further discuss the above. Will continue to monitor and follow for discharge. Malinda Tadeo Referral Liaison
--- NOTE | 2021-08-29 09:02 | NUR ---
Case conference with PCU battery recharger this am and reviewed EMR, CM notes. Family has opted for d/c home and [facility] chosen with tentative plan for d/c to family care with hospice today. Will plan comfort care visit this am.
--- NOTE | 2021-08-29 09:42 | NUR ---
Brief visit to room. Pt's granddau was meeting with [facility] continuous process tanner rotary drum. Pt asleep and not participating in the conversation. He looks peaceful and comofortable. I did not see any restlessness or nonverbal indicators of pain. Case conferenced with bedside RN re: s/s management and rxs used t/o the night. Pt is more lethargic today with increased work of breathing per staff. Plan remains for transfer home to family care with hospice support as soon as that can be arranged.
[2021-08-29] MEDS ORDERED: Ativan1 MG PO (10:47)
[2021-08-29] MEDS ORDERED: DURAMORPH0.5 MG/1 M SL (10:50)
[2021-08-29] MEDS ORDERED: ONDA4ODT MM (10:51)
[2021-08-29] MEDS ORDERED: TRANSDERM-SCOP1 EAC8 TD (10:52)
--- NOTE | 2021-08-29 11:47 | NUR ---
DISCHARGE NOTE: RALPH UPDATED REGARDING POC AND DISCHARGE HOME ON HOSPICE. PT REMAINS CONFUSED/LETHARGIC, ALL POC DECISION MAKING CONTINUES TO BE DEFERRED TO DP0A AT THIS TIME. PT IN NO APPARENT DISTRESS AT THIS TIME. ALL BELONGINGS AND PAPERWORK WERE SENT WITH [facility] WHO WAS PRESENT AT BEDSIDE FOR DISCHARGE.
--- NOTE | 2021-08-29 12:48 | NUR ---
Late Entry from 08/29/2021 at 0915: Met with patient and granddaughter (Monica Gions) to further discuss hospice services and the election of [facility]. Patient is very drowsy and is unable to meaningfully participate in conversation, however, granddaughter is agreeable to the above. Patient's granddaughter is known to this auto service writer as she is a previous [employer] [facility] employee. As such a very brief discussion was held with granddaughter regarding the people, prescriptions, and equipment of hospice. People- discussed the team of people and their roles (RNs, chaplains, therapists, LCSWs, CNAs, and volunteers) that would be there to support not only the patient but also their family during this time. Patient's granddaughter verbalized understanding. Prescriptions- discussed that we utilize a mail order pharmacy ([facility]) to provide medications related to the hospice diagnosis and for symptom management. All other medications that patient chose to stay on would be patient's and/or patient's family's responsibility to provide and pay for. Patient's granddaughter verbalized understanding. Discussed that upon discharge patient would be given three prescriptions, one for morphine 20mg/mL #30mL (0.25mL - 1mL PO/SL Q1H PRN SOB/pain), one for lorazepam 0.5mg #20 (1 - 2 PO Q4H PRN anxiety), and one for hyoscyamine 0.125mg SL tablets #30 (1 SL Q2H PRN secretions). Explained to the patient's granddaughter that as patient would not yet be admitted to hospice service at the time of discharge those prescriptions would be patient/patient's family's responsibility to fill and pay for. Patient's granddaughter verbalized understanding. Equipment- discussed with patient's granddaughter that we contract through [employer] to provide DME such as hospital beds, commodes, etc. to patient. Wrote order for DME (hospital bed, full rails, over bed table, pump & pad, oxygen & e-tank at 1-5 LPM, bedside commode, shower chair, transfer bench, walker, and wheelchair) and sent to [employer] for delivery today- 08/29/2021. Discussed with patient's granddaughter that [employer] does not supply the sheets for the beds. Discussed that one of two options can be used- either a twin extra-long fitted sheet OR a goodrich sized flat sheet wrapped around the pump & pad. Patient's granddaughter verbalized understanding. Discussed the tentative discharge plans for today- 08/29/2021 at 1400 with preferred mode of transport- medical transport via gurney. Granddaughter requested an earlier discharge time if possible as patient had been very anxious to discharge. Discussed with patient's granddaughter that this auto service writer would request a 1200 pickup time. Explained to patient's granddaughter that I would arrange transportation for patient. Patient's granddaughter verbalized understanding. Will continue to monitor and follow as appropriate for discharge. Malinda Tadeo Referral Liaison
--- NOTE | 2021-08-29 12:56 | NUR ---
Patient is to discharge at 1200 with orders for hospice. Contacted [facility] ([facility]) to arrange gurney transport to patient's residence. Pick-up at [phone] will be provided by [facility]. Faxed copy of face sheet, PCS form, VTS form, and DNR status to VTS office per protocol. Placed copies of the above in nurse sql server dba for transportation broker. Notified nurse healthcare consulting manager (Hawa López), aeronautical inspector (Stevenson Camarillo), and bedside RN (Fanny Alfonso) of the above. All are agreeable to the above. Requested discharge orders from hospitalist (Dr. Abdul). Provided hard copy prescriptions for morphine and lorazepam to [facility] on - 08/29/2021. Faxed copies of discharge order and med list to [facility] childcare center administrator. No further interventions required. Malinda Tadeo Referral Liaison
== END 2021-08-29 11:35 | disposition hospice, home (50) | DRG 309 ==
LOC: ER 05:22 → ERHOLD 05:23 → ER 05:23 → ERHOLD 10:39 → PCU 10:39 → ERHOLD 10:40 → PCU 15:07
PROVIDERS: Emergency Medicine; Family Medicine; Internal Medicine Cardiovascular Disease; Student in an Organized Health Care Education/Training Program; ADMIT Internal Medicine
DX: I49.5 Sick sinus syndrome (principal); I50.22 Chronic systolic (congestive) heart failure; Z20.822 Contact with and (suspected) exposure to COVID-19; I48.0 Paroxysmal atrial fibrillation; Z66 Do not resuscitate; Z51.5 Encounter for palliative care; I25.10 Atherosclerotic heart disease of native coronary artery without angina pectoris; I11.0 Hypertensive heart disease with heart failure; R41.3 Other amnesia; D50.9 Iron deficiency anemia, unspecified; M10.9 Gout, unspecified; N40.0 Benign prostatic hyperplasia without lower urinary tract symptoms; J44.9 Chronic obstructive pulmonary disease, unspecified; E78.5 Hyperlipidemia, unspecified; Z88.2 Allergy status to sulfonamides; Z88.8 Allergy status to other drugs, medicaments and biological substances; Z79.01 Long term (current) use of anticoagulants; Z79.899 Other long term (current) drug therapy; Z85.46 Personal history of malignant neoplasm of prostate; Z95.1 Presence of aortocoronary bypass graft; Z98.890 Other specified postprocedural states; Z87.891 Personal history of nicotine dependence; Z95.2 Presence of prosthetic heart valve; Z86.73 Personal history of transient ischemic attack (TIA), and cerebral infarction without residual deficits; Z90.49 Acquired absence of other specified parts of digestive tract; Z99.81 Dependence on supplemental oxygen
CPT/HCPCS: 0241U; 36415; 51701; 70450; 71045; 80053; 81001; 82550; 83605; 83735; 84145; 84146; 84443; 84484; 85025; 85610; 85730; 87077; 87086; 87186; 93005; 93010; 93306; 94640; 96374; 96376; 99285-25; A9270; J0461; J1170; J2060; J7030